=== PATIENT | male | born 1945 | race Caucasian/White ===

== ENCOUNTER → 2018-08-26 | Outpatient (CLI) | payer OTHER ==
[~2018-08-26] VITALS: Ht 182.9 cm; Wt 124.2 kg
[~2018-08-26] MED LIST: ASPIR 8181 M1 PO; BYSTOLIC2.5 MG PO; CELEBREX 200 M200 M1 PO; CHLORTHALIDONE25 MG PO; CRESTOR5 MG PO; LISINOPRIL10 MG PO; NORVASC2.5 MG PO; PERCOCET 10-321 EACH PO
--- NOTE | ~2018-08-26 | HPC ---
[facility] [address] [place] [address] PAIN MANAGEMENT CONSULTATION Name: JEANNINE ABDUL Room #: REG FISH Carolyn.#: [id number] Admission: 08/26/18 ������������������ Attend Phys: Mick Rodriguez MD Discharge: ������������������ Date of : 43 Report #: [id number] THIS REPORT FOR: //name// CC: [facility] physician/PCP Mick Rodriguez DATE OF SERVICE: 08/26/2018 Followup visit for sacroiliac joint pain on the left. The patient returns to pain clinic today after seeing Xiomara Clay. We provided radiofrequency ablation of his sacroiliac joint nerves at a previous appointment in 2018 at [facility]. He was favorable with about 2-3 months response. We would like to see longer 6 months is often considered the standard for a favorable response reaching up into 18 months or even longer. We reviewed further options. I think based upon his response, we are treating the pain generator. The additional treatment options would possibly be an iFuse, the fusion device that will stabilize the sacroiliac joint. Dr. Abernathy has apparently discussed this possibility with him for the future. For now, he would like to continue with the radiofrequency treatments I think it is reasonable to repeat it, it has been now about 6 months I believe or longer since his original treatment. Today, he describes his pain as a 4/10. It is localized in the left sacroiliac joint. He also has some arthritis in his knees with effusion and just recently underwent arthrocentesis and injection of triamcinolone into each knee. His reports that he was given 80 mg of triamcinolone in each knee for a total of 160 mg. The procedure went fine, he is a little bit better, but he is now just over about of hiccups that occurred shortly after his injections and he blamed on the cortisone. I am unaware of that side effect. Perhaps a higher dose of triamcinolone was a result. The pain does not seem to affect his ambulation. He has not fallen, does not appear to be a fall risk. He is on no blood thinners. His primary care physician treats him for hypertension. He is on lisinopril. All other medications were reviewed and reconciled from electronic medical record including an additional amlodipine. For pain, he takes Celebrex and oxycodone 10/[address] Abernathy. He is at low risk for addiction. He is on an opioid agreement with Dr. Lobo team. SOCIAL HISTORY: Denies use of tobacco, but drinks alcohol socially once or twice a week. PHYSICAL EXAMINATION: GENERAL: A pleasant, outgoing gentleman. VITAL SIGNS: He is 6 feet tall, 273 pounds for a BMI of 37.1. Weight loss [address] [address] PAIN MANAGEMENT CONSULTATION Name: JEANNINE ABDUL Room #: REG FISH Lujan#: [id number] Admission: 08/26/18 ������������������ Attend Phys: Mick Rodriguez MD Discharge: ������������������ Date of : 43 Report #: [id number] strategies have been discussed in the past. His blood pressure 124/59, heart rate 65, respirations 20. He easily moves from sitting to standing position, ambulates without difficulty. Localized tenderness is identified over the sacroiliac joint. There is modest Nemo test, reproducing some additional pain in the sacroiliac joint. IMPRESSION: Post-laminectomy with fusion. Fusion extends through the sacrum and has created sacroiliac joint dysfunction and sacroiliac joint pain with a positive response to diagnostic treatment injections. PLAN: We will schedule him for radiofrequency ablation. A followup scheduled in September when he returns to [place]. ��������������������������������������������� ���������������������������������������� By: ��������������������������������������������� [id number] Mick Rodriguez MD /nt
[2018-08-26 13:17] VITALS: BP 124/59
== END ==
LOC: PAIN 07:00
DX: M43.26 Fusion of spine, lumbar region (principal); M53.3 Sacrococcygeal disorders, not elsewhere classified; M96.1 Postlaminectomy syndrome, not elsewhere classified

== ENCOUNTER → 2018-09-27 | Outpatient (CLI) | payer OTHER ==
[~2018-09-27] VITALS: Ht 182.9 cm; Wt 126.7 kg
[2018-09-27 14:10] VITALS: BP 138/75
--- NOTE | 2018-09-27 14:35 | NUR ---
Pain Clinic Assessment: 1. History of Osteoarthritis: KNEES History of Rheumatoid Arthritis: Not Applicable 2. Height: 6 ft. 0 in. 182.9 cm. Weight: 279.4 lb. oz. 126.735 kg. Patient's BMI: 37.9 3. Vital Signs: BP: 138/75 Pulse: 73 Resp: 16 Temp: 02 Sat: 95 ECG Mon: 4. Pain Intensity: 4 BACK, KNEES-8 5. Fall Risk: Dizziness: N Needs help standing or walking: N Fallen in the last 3 months: N Fall risk comments: 6. Patient on Blood Thinner: None 7. History of Hypertension: Y 8. Opioid Therapy greater than 6 weeks: Opiate Contract Signed: 9. Risk Assessment Tool Provided: 0-LOW RISK 10. Functional Assessment Tool: 11. Recreational Drug Use: Unknown Drug Type: Tobacco Use: Unknown if Ever Smoked Tobacco Type: Amount or Packs/day: How Many Years: Alcohol Use: Yes Frequency: Quant:
--- NOTE | 2018-10-18 18:12 | HPC ---
[facility] [address] [place] [address] PAIN MANAGEMENT CONSULTATION Name: JEANNINE ABDUL [id number] Admission: 09/27/18 ������������������ Attend Phys: Mick Rodriguez MD Discharge: ������������������ Date of : 43 Report #: [id number] THIS REPORT FOR: //name// CC: [facility] physician/PCP Ramon Rodriguez DATE OF SERVICE: 09/27/2018 Followup visit for severe left sacroiliac joint pain, bilateral osteoarthritis of the knees and chronic intractable pain. The patient returns to the pain clinic today for radiofrequency ablation of the L5 dorsal ramus, the S1, S2 and S3 branches on the left. He had this procedure performed successfully at [facility]. Unfortunately, the duration of response was not as long as we had hoped for. We have decided today that we will repeat the injection and again we are looking for sustained and prolonged relief. The potential benefits and risks of the procedure were discussed with the patient at some length today. He understands the procedure well and is anxious to proceed. PHYSICAL EXAMINATION: This is a very pleasant, outgoing 73-year-old gentleman. Blood pressure 138/75 and heart rate 73. He has pain across the lumbosacral segment primarily in the left sacroiliac joint. There is positive Nemo reproducing pain into the sacroiliac joint. There is a large scar extending throughout the lumbosacral region from his previous L4 through S1 fusion. IMPRESSION: Sacroiliitis with instability, status post laminectomy with fusion. Sacroiliac dysfunction. PROCEDURE: Radiofrequency ablation, L5, S1, S2, S3. DESCRIPTION OF PROCEDURE: He was taken to the fluoroscopic suite where he was placed prone. Skin was prepped with ChloraPrep and draped in the standard fashion. The skin was anesthetized inferior to the sacrum on the left and 15 cm, 10 mm active tip radiofrequency needles were advanced in parallel just lateral to the posterior foramen of S3, S2 and S1. AP and lateral views were used to confirm location. Lily were gently advanced into position, slightly advancing the medial needle from the tip of the lateral needle to provide a stair stepping effect for the ablation. Testing was performed to provide confirmation of some sensory response and we tested for motor; however, for the S1, S2 and S3 branches, there was no motor branch to be concerned about using the posterior approach along the posterior table of sacrum. Nonetheless, all responses confirmed reasonable needle location and beginning first at S3, I injected 1 mL of 1% lidocaine through each needle and after waiting 30 seconds followed with a 90-second 80 degree lesion performed simultaneously through each needle. The probe was then removed and the [place] [address] PAIN MANAGEMENT CONSULTATION Name: JEANNINE ABDUL Room #: REG FISH Lujan#: [id number] Admission: 09/27/18 ������������������ Attend Phys: Mick Rodriguez MD Discharge: ������������������ Date of : 43 Report #: [id number] position just lateral to the foramen, posterior neural foramen of S2 the medial needle once more slightly more cephalad than the lateral. Lidocaine was injected 1%, 1 mL through each needle once again and after appropriate testing I performed lesioning once again at 80 degrees for 90 seconds. The needles were finally advanced further cephalad to the S1 foramen where we repeated the procedure in the same fashion. At the conclusion of the three sacral nerve root radiofrequencies, I injected as I withdrew the needles slowly, a total of 2 mL of 0.5% bupivacaine mixed with 20 mg of triamcinolone through each needle. The skin was then anesthetized inferior and medial to the sacral ala on the left. The same two needles were then advanced into position at the sacral ala where sensory and motor testing was performed carefully at this level. There was no motor response. After injecting 1 mL of 1% lidocaine through each needle and after a 30-second wait, we then performed the final radiofrequency lesion 80 degrees for 90 seconds through each of the needles lying parallel to each other at the sacral ala. He tolerated the procedure well. There was some discomfort overlying the area of the sacrum following the procedure, which was treated with ice He scored his pain at 3 at discharge. There was no evidence of weakness in the lower extremities. No medications were ordered. We will follow up by phone. Other treatments were discussed in the recovery room. He has some interest in intrathecal therapies if his pain continues given his multiple pain generators. ��������������������������������������������� <ELECTRONICALLY SIGNED> ���������������������������������������� By: Mick Rodriguez MD ��������������������������������������������� 10/18/18 1812 1825 0625 Mick Rodriguez MD /nt
== END | disposition home or self-care (01) ==
LOC: PAIN 06:47
DX: M53.3 Sacrococcygeal disorders, not elsewhere classified (principal); G89.29 Other chronic pain; M17.0 Bilateral primary osteoarthritis of knee; Z98.890 Other specified postprocedural states; Z79.899 Other long term (current) drug therapy; Z79.891 Long term (current) use of opiate analgesic; Z79.82 Long term (current) use of aspirin

== ENCOUNTER → 2019-02-28 | Outpatient (CLI) | payer OTHER ==
[~2019-02-28] VITALS: Ht 182.9 cm; Wt 117.2 kg
--- NOTE | ~2019-02-28 | HPC ---
[facility] [place] [address] PAIN MANAGEMENT CONSULTATION Name: JEANNINE ABDUL Room #: REG [facility] M..#: [id number] Admission: 02/28/19 Attend Phys: Mick Rodriguez MD Discharge: Date of : 43 Report #: [id number] THIS REPORT FOR: //name// CC: [facility] physician/PCP Ramon Rodriguez DATE OF SERVICE: 02/28/2019 Followup visit for severe left sacroiliac joint pain, status post lumbar fusion. The patient returns to pain clinic today complaining bitterly of pain in the left sacroiliac joint. He reports that the sacroiliac radiofrequency ablation procedure that was performed on 09/27/2018 was very helpful for many months. He would like to repeat the procedure. His response is certainly diagnostic. He takes some pain medication provided by local physicians. I do not prescribe for him. PHYSICAL EXAMINATION: This is a pleasant gentleman, alert and oriented. He is somewhat overweight with a BMI of 35. He has diffuse osteoarthritis involving hips and knees. His blood pressure 150/76, heart rate 70, respirations 16. O2 sat is 97. Pain intensity 6. He is independent in his movements from sitting to standing position, although they are antalgic and he complains of pain. He has not fallen in the last 3 months. There is no hypertension. He takes medication for it. He is on an opioid agreement and is considered at low risk for addiction with an opioid risk score of 0. Functional assessment score 25/70, suggests that he does not let pain interfere. He denies use of tobacco, but enjoys alcohol in social settings. IMPRESSION: He has chronic sacroiliitis with instability, status post laminectomy and fusion. Sacroiliac dysfunction. He has responded very favorably to radiofrequency ablation of the L5 dorsal ramus, S1, S2 and S3 posterior rami. PROCEDURE: Radiofrequency ablation. DESCRIPTION OF PROCEDURE: He was taken to fluoroscopic suite, placed prone, skin prepped with ChloraPrep. Skin was anesthetized inferior to the sacrum to the left. Two 15 cm 20-gauge curved RFK needles were used for the procedure. A 10 mm active tip. We advanced the needles first lateral to the S3 foramen. AP and lateral views confirmed good location. We tested without motor response as would be expected with the needles posterior to the table of sacrum. Sensory testing did reveal some tingling sensations in the area of pain. A 1 mL of lidocaine was injected through each needle and the tandem parallel needles were [facility] [address] [place] [address] PAIN MANAGEMENT CONSULTATION Name: JEANNINE ABDUL Room #: REG FISH Tai#: [id number] Admission: 02/28/19 Attend Phys: Mick Rodriguez MD Discharge: Date of : 43 Report #: [id number] then used to perform a radiofrequency lesioning procedure for 90 seconds at 80 degrees centigrade. I then advanced the needle slowly approximately a cm on each one to lie lateral to the S2 posterior foramen. Once again, testing performed with appropriate responses. Lidocaine infused into the needle, 1 mL through each one and then the probes were replaced and the second radiofrequency lesioning procedure was performed as above. The procedure was repeated once again lateral to the S1 posterior foramen in a similar fashion. [place] were then withdrawn. The skin was anesthetized at a different angle I advanced needle into the area of the sacral ala. Testing was performed at this location in earnest to ensure that there was no needle placement near the L5 nerve root, which exits just below the sacral ala. There was no motor response and sensory responses were limited due to the use of lidocaine. We then performed our final lesioning at that level, including radiofrequency lesioning on the left of the L5 dorsal ramus, S1, S2 and S3 posterior medial branch nerve blocks. Before I removed each needle, I injected as I withdrew triamcinolone 20 mg along with 3 mL of 0.5% bupivacaine to help with post-procedural neuritis. He tolerated the procedure well and was observed in recovery room for about 40 minutes and was discharged with a pain score reduction of about 30%. Follow up as needed. By: [id number] Mick Rodriguez MD /jarred
[2019-02-28 13:55] VITALS: BP 150/76
--- NOTE | 2019-02-28 14:07 | NUR ---
Pain Clinic Assessment: 1. History of Osteoarthritis: KNEES History of Rheumatoid Arthritis: DENIES 2. Height: 6 ft. 0 in. 182.9 cm. Weight: 258.4 lb. oz. 117.210 kg. Patient's BMI: 35.0 3. Vital Signs: BP: 150/76 Pulse: 70 Resp: 16 Temp: 02 Sat: 97 ECG Mon: 4. Pain Intensity: 6 5. Fall Risk: Dizziness: N Needs help standing or walking: N Fallen in the last 3 months: N Fall risk comments: 6. Patient on Blood Thinner: None 7. History of Hypertension: Y 8. Opioid Therapy greater than 6 weeks: Y Opiate Contract Signed: 9. Risk Assessment Tool Provided: 0-LOW RISK 10. Functional Assessment Tool: 11. Recreational Drug Use: Never Drug Type: Tobacco Use: Former Smoker Tobacco Type: Amount or Packs/day: How Many Years: Alcohol Use: Yes Frequency: Special Occasions Quant:
== END | disposition home or self-care (01) ==
LOC: PAIN 07:23
DX: M53.3 Sacrococcygeal disorders, not elsewhere classified (principal); M46.1 Sacroiliitis, not elsewhere classified; G89.29 Other chronic pain; Z98.890 Other specified postprocedural states; Z87.891 Personal history of nicotine dependence; Z79.82 Long term (current) use of aspirin; Z79.899 Other long term (current) drug therapy

== ENCOUNTER → 2019-09-15 | Outpatient (CLI) | payer OTHER ==
[~2019-09-15] VITALS: Ht 182.9 cm; Wt 127.6 kg
--- NOTE | ~2019-09-15 | HPC ---
[facility] [place] [address] PAIN MANAGEMENT CONSULTATION Name: JEANNINE ABDUL Room #: REG FISH MMariana.#: [id number] Admission: 09/15/19 Attend Phys: Mick Rodriguez MD Discharge: Date of : 43 Report #: [id number] THIS REPORT FOR: cc: [facility] - No family physician/PCP FAM - No family physician/PCP Mick Rodriguez MD ~ CC: [facility] physician/PCP BARBY Rodriguez DATE OF SERVICE: 09/15/2019 Followup visit for left sacroiliac joint pain, status post lumbar fusion. The patient returns to pain clinic today after seeing Dr. Barby Abernathy. He also presents with procedure reports from treatments he received while he was in [place]. He was seen at the [facility] there and Dr. Mick Sanford performed 2 injections. The first on 07/27/2019 was the injection of 2 mL of 0.5% Marcaine around his left S1 screw complex. This was done solely for diagnostic purposes. By report, several hours of pain relief occurred. He then returned 1 week later, received a second injection this time, using the exact same volume of Marcaine, but also included 80 mg of Depo-Medrol. The injections outlined the posterior screw complex. Unfortunately, the Depo-Medrol addition did not provide any lasting relief and pain returned very quickly. In fact, he reports that he did not receive the same benefit from the 2 mL of 0.5% ropivacaine. In the past, I have treated him for a sacroiliac origin. This makes more sense mechanically I believe. There is hypermobility of the sacroiliac joint when the lumbosacral fusion extends all the way through the sacrum. This puts additional stress on the sacroiliac joint and his pain is locally tender there. His response to the sacroiliac radiofrequency ablation procedures which has been favorable in 2 out of 3 occasions also suggests a sacroiliac origin. PQRS review is positive for osteoarthritis. He has had bilateral knee replacements. He has spondylitic changes above and below his fusion. His BMI is 38.2 and he is morbidly obese. We discussed weight as a pain generator. Blood pressure is 149/71, heart rate 61, respirations 20, and O2 sat is 96. Pain intensity 4/10. He has not fallen, nor does need his help standing or walking. He is on no blood thinners. He has been treated for hypertension with close observation. I reviewed all of his medications including his antihypertensive medications. He is on an opioid agreement. Medicines were provided by Dr. Abernathy. Last prescription was on 09/07/2019. I do not prescribe medications for him. His [address] [address] PAIN MANAGEMENT CONSULTATION Name: JEANNINE ABDUL Room #: REG FISH Lujan#: [id number] Admission: 09/15/19 Attend Phys: Mick Rodriguez MD Discharge: Date of : 43 Report #: [id number] risk assessment tool score is 0, however, and I have reviewed that with him. Despite his pain, he remains fairly active. His functional assessment score is 25/70. He denies use of tobacco, drinks alcohol socially. PHYSICAL EXAMINATION: VITAL SIGNS: As noted above. GENERAL: He moves independently, ambulates with mild antalgic features to his gait. He has minimal discomfort or pain with flexion, extension, rotation or [id number] tilt. Palpation exam reveals localized tenderness clearly along the left sacroiliac joint. There is perhaps some tenderness also at the lumbosacral segment. Pain does not radiate into the leg and does not appear to be radicular. He denies weakness, numbness or tingling. IMPRESSION: Chronic sacroiliac joint pain with sacroiliitis due to instability, status post extensive lumbar laminectomy and fusion. He has responded favorably in the past to radiofrequency ablation. We have spent some time since we have tried a simple triamcinolone injection of the sacroiliac joint. This can be performed quickly. We are both hopeful that we can obtain pain relief from a cortisone injection that may provide similar duration to his radiofrequency. He has been scheduled back for injection in 1-2 weeks as we continue to monitor the COVID-19 virus. Risks of injections were discussed. By: 1155 [id number] Mick Rodriguez MD /nt
[2019-09-15 10:15] VITALS: BP 149/71
--- NOTE | 2019-09-15 10:24 | NUR ---
Pain Clinic Assessment: 1. History of Osteoarthritis: KNEES History of Rheumatoid Arthritis: DENIES 2. Height: 6 ft. 0 in. 182.9 cm. Weight: 281.4 lb. oz. 127.643 kg. Patient's BMI: 38.2 3. Vital Signs: BP: 149/71 Pulse: 61 Resp: 20 Temp: 02 Sat: 96 ECG Mon: 4. Pain Intensity: 4 5. Fall Risk: Dizziness: N Needs help standing or walking: N Fallen in the last 3 months: N Fall risk comments: 6. Patient on Blood Thinner: None 7. History of Hypertension: Y 8. Opioid Therapy greater than 6 weeks: Y Opiate Contract Signed: 9. Risk Assessment Tool Provided: 0-LOW RISK 10. Functional Assessment Tool: 11. Recreational Drug Use: Never Drug Type: Tobacco Use: Former Smoker Tobacco Type: Amount or Packs/day: How Many Years: Alcohol Use: Yes Frequency: Quant:
== END ==
LOC: PAIN 07:16
DX: M53.3 Sacrococcygeal disorders, not elsewhere classified (principal); M96.1 Postlaminectomy syndrome, not elsewhere classified; Z96.1 Presence of intraocular lens; Z79.899 Other long term (current) drug therapy

== ENCOUNTER → 2019-09-19 | Outpatient (CLI) | payer OTHER ==
[~2019-09-19] VITALS: Ht 182.9 cm; Wt 127.0 kg
--- NOTE | ~2019-09-19 | HPC ---
[facility] [place] [address] PAIN MANAGEMENT CONSULTATION Name: JEANNINE ABDUL Room #: REG FISH Carolyn.#: [id number] Admission: 09/19/19 Attend Phys: Mick Rodriguez MD Discharge: Date of : 43 Report #: [id number] THIS REPORT FOR: cc: [facility] - No family physician/PCP FAM - No family physician/PCP Mick Rodriguez MD ~ CC: [facility] physician/PCP aRmon Rodriguez DATE OF SERVICE: 09/19/2019 Followup visit for left sacroiliac joint injection under fluoroscopic guidance. The patient was seen just 5 days ago. He is here today for his injection. We were unable to perform the injection last . Procedure was reviewed including detail. Discussed risks. Plan 40 mg of triamcinolone. Questions were answered and informed consent signed. IMPRESSION: Left sacroiliac joint pain, sacroiliitis, status post lumbar fusion. PROCEDURE: Sacroiliac joint injection under fluoroscopic guidance. After informed consent, he was taken to the fluoroscopic suite, placed prone, skin prepped with ChloraPrep. Skin anesthetized over the left sacroiliac joint. Skin was anesthetized and a 22-gauge needle advanced into the posterior inferior capsule. After negative aspiration, I gently injected 1/4-1/8th of 1 mL of Omnipaque. An excellent arthrogram was obtained. I then injected 2 mL of 0.5% bupivacaine mixed with 40 mg of triamcinolone. He tolerated the injection well. There were no complications. He was observed for a short time and discharged. Follow up as needed. By: 1330 1434 Mick Rodriguez MD /nt
[2019-09-19 09:38] VITALS: BP 139/71
--- NOTE | 2019-09-19 09:53 | NUR ---
Pain Clinic Assessment: 1. History of Osteoarthritis: spine History of Rheumatoid Arthritis: no 2. Height: 6 ft. 0 in. 182.9 cm. Weight: 280.0 lb. oz. 127.008 kg. Patient's BMI: 38.0 3. Vital Signs: BP: 139/71 Pulse: 66 Resp: 20 Temp: 02 Sat: 96 ECG Mon: 4. Pain Intensity: 5-6 5. Fall Risk: Dizziness: N Needs help standing or walking: N Fallen in the last 3 months: N Fall risk comments: 6. Patient on Blood Thinner: None 7. History of Hypertension: Y 8. Opioid Therapy greater than 6 weeks: Y Opiate Contract Signed: 9. Risk Assessment Tool Provided: 0-LOW RISK 10. Functional Assessment Tool: 11. Recreational Drug Use: Never Drug Type: Tobacco Use: Former Smoker Tobacco Type: Amount or Packs/day: How Many Years: Alcohol Use: Yes Frequency: Quant:
== END | disposition home or self-care (01) ==
LOC: PAIN 06:53
DX: M53.3 Sacrococcygeal disorders, not elsewhere classified (principal); G89.29 Other chronic pain; Z98.890 Other specified postprocedural states; Z79.899 Other long term (current) drug therapy; Z87.891 Personal history of nicotine dependence
CPT/HCPCS: G0260

== ENCOUNTER → 2019-12-15 | Outpatient (CLI) | payer OTHER ==
[~2019-12-15] VITALS: Ht 182.9 cm; Wt 128.9 kg
--- NOTE | ~2019-12-15 | HPC ---
[facility] [address] [address] PAIN MANAGEMENT CONSULTATION Name: JEANNINE ABDUL Room #: REG FISH Leon.#: [id number] Admission: 12/15/19 Attend Phys: Mick Rodriguez MD Discharge: Date of : 43 Report #: [id number] THIS REPORT FOR: cc: [facility] - No family physician/PCP [facility] - No family physician/PCP Mick Rodriguez MD ~ CC: [facility] physician/PCP Ramon Rodriguez DATE OF SERVICE: 12/15/2019 Followup visit for left sacroiliac joint pain. The patient returns to pain clinic today and has pain in his left sacroiliac joint. He has sacroiliitis. It is so common after patients who have had an extensive fusion extending down into the sacrum. We have a number of patients who complain of pain in that area and respond to diagnostic and therapeutic injections. We tried to do radiofrequency, but it is difficult to isolate those nerves. He might do better if we could find some place to do cooled radiofrequency and we discussed that. He has responded to sacroiliac injections with numbing medicine bupivacaine as well as triamcinolone. He is here today for a repeat injection. His last injection was about 3-1/2 months ago. PQRS remains unchanged. His BMI is 35.8. He has a history of osteoarthritis and spondylosis. His vital signs: Blood pressure 131/84, heart rate 64, respirations 20, O2 sat 97, pain intensity 6 with pain medicine. He has not fallen and he is not at risk. He continues to fish and is active. He is on no blood thinners, but is treated for hypertension. Opioid therapy is provided by Dr. Abernathy under terms of agreement from his office. He is at low risk according to the opioid risk tool. His functional assessment score is 24 showing stoicism. Denies tobacco, but drinks alcohol every so often in the summer when it is hot, drinking beer. IMPRESSION: Lumbar spondylosis with sacroiliac joint pain and sacroiliitis related to extensive lumbosacral fusion. RECOMMENDATION AND PLAN: Repeat sacroiliac injection under fluoroscopic guidance. After informed consent, he was taken to the fluoroscopic suite, placed prone, skin prepped with ChloraPrep. Skin anesthetized over the left SI joint. A 22-gauge spinal needle was advanced in the sacroiliac joint. A 0.25 mL of Omnipaque was injected on 3 occasions until I obtain an arthrogram. It was then followed by 40 mg of triamcinolone and 0.5 mL of 0.5% bupivacaine. He tolerated the procedure well, was observed for 45 minutes and discharged. [address] [address] PAIN MANAGEMENT CONSULTATION Name: JEANNINE ABDUL Room #: REG FISH Lujan#: [id number] Admission: 12/15/19 Attend Phys: Mick Rodriguez MD Discharge: Date of : 43 Report #: [id number] Followup visit planned as needed. Hopefully, this will provide him some measured relief over the course of the next several months and we will repeat them. By: [id number] Mick Rodriguez MD /nt
[2019-12-15 10:02] VITALS: BP 131/84
--- NOTE | 2019-12-15 10:13 | NUR ---
Pain Clinic Assessment: 1. History of Osteoarthritis: spine History of Rheumatoid Arthritis: no 2. Height: 6 ft. 0 in. 182.9 cm. Weight: 284.2 lb. oz. 128.913 kg. Patient's BMI: 38.5 3. Vital Signs: BP: 131/84 Pulse: 64 Resp: 20 Temp: 02 Sat: 97 ECG Mon: 4. Pain Intensity: 5-6 WITH PAIN MED 5. Fall Risk: Dizziness: N Needs help standing or walking: N Fallen in the last 3 months: N Fall risk comments: 6. Patient on Blood Thinner: None 7. History of Hypertension: Y 8. Opioid Therapy greater than 6 weeks: Y Opiate Contract Signed: 9. Risk Assessment Tool Provided: 0-LOW RISK 10. Functional Assessment Tool: 11. Recreational Drug Use: Never Drug Type: Tobacco Use: Former Smoker Tobacco Type: Amount or Packs/day: How Many Years: Alcohol Use: Yes Frequency: Quant: COUPLE BEERS A WEEK IN SUMMER ONLY
== END | disposition home or self-care (01) ==
LOC: PAIN 06:49
PROVIDERS: ATTEND Anesthesiology Pain Medicine
DX: M53.3 Sacrococcygeal disorders, not elsewhere classified (principal); G89.29 Other chronic pain; M47.896 Other spondylosis, lumbar region; I10 Essential (primary) hypertension; Z98.890 Other specified postprocedural states; Z79.899 Other long term (current) drug therapy; Z79.01 Long term (current) use of anticoagulants

== ENCOUNTER → 2020-03-08 | Outpatient (CLI) | payer OTHER ==
[~2020-03-08] VITALS: Ht 182.9 cm; Wt 129.3 kg
--- NOTE | ~2020-03-08 | HPC ---
[facility] [place] [address] PAIN MANAGEMENT CONSULTATION Name: JEANNINE ABDUL Room #: REG FISH [place].#: [id number] Admission: 03/08/20 Attend Phys: Mick Rodriguez MD Discharge: Date of : 43 Report #: [id number] CC: BARBY Rodriguez DATE OF SERVICE: 03/08/2020 Followup visit for left sacroiliac joint pain. The patient returns to pain clinic today for sacroiliac injection. I performed these injections periodically for him with good result. He is not a surgical candidate. We have discussed other options including medication management. I have agreed to perform the injections for him. Dr. Abernathy has been providing him with medication under an agreement through the clinic. We will continue that arrangement. I reviewed his prescription drug monitoring program information and he is on a fairly straightforward schedule receiving oxycodone 10/325, 120 tablets per month. He would like to avoid increasing his pain medication. Generally after an injection he is able to extend those opioid medications into the 2-3 months range suggesting a significant improvement. PQRS review is positive for spondylosis and osteoarthritis of the sacroiliac joint. His BMI is 38.6. Blood pressure 146/70, heart rate 61, respirations 20, O2 sat 97. Pain intensity is 5-6 with pain medication, without it can be excruciating. He has had no falls, is on no blood thinners. He does receive medication, is under treatment for hypertension. His opioid agreement is through Dr. Abernathy's office and his risk assessment tool that we perform in our clinic shows that he is extremely low risk for addiction with a score of 0. He does drink alcohol socially. We discussed the interaction between opioids and alcohol and he is careful to not combine them at the same. PHYSICAL EXAMINATION: Positive for localized discomfort over the sacroiliac joint with a positive ADI reproducing pain directly over the joint itself. IMPRESSION: Sacroiliitis with sacroiliac joint dysfunction following fusion of lumbosacral spine. PROCEDURE: Sacroiliac joint under fluoroscopic guidance. DESCRIPTION OF PROCEDURE: After informed consent, he was taken to the fluoroscopic suite, he was placed prone, skin prepped with ChloraPrep. Skin anesthetized over the left SI joint. Using careful fluoroscopic guidance, I advanced a 22-gauge spinal needle into the joint and an excellent arthrogram was obtained with 0.25 mL of Omnipaque. It was followed then by 2 mL of 0.5% bupivacaine mixed with 40 mg of triamcinolone. He tolerated the procedure well. There were no complications. Pain relief was modest initially, but will hopefully improve over time. Followup visit scheduled in 3 months. By: [id number] Mick Rodriguez MD /nt
[2020-03-08 09:43] VITALS: BP 146/70
--- NOTE | 2020-03-08 09:44 | NUR ---
Pain Clinic Assessment: 1. History of Osteoarthritis: spine History of Rheumatoid Arthritis: no 2. Height: 6 ft. 0 in. 182.9 cm. Weight: 285.0 lb. oz. 129.276 kg. Patient's BMI: 38.6 3. Vital Signs: BP: 146/70 Pulse: 61 Resp: 20 Temp: 02 Sat: 97 ECG Mon: 4. Pain Intensity: 5-6 WITH PAIN MED 5. Fall Risk: Dizziness: N Needs help standing or walking: N Fallen in the last 3 months: N Fall risk comments: 6. Patient on Blood Thinner: None 7. History of Hypertension: Y 8. Opioid Therapy greater than 6 weeks: Y Opiate Contract Signed: 9. Risk Assessment Tool Provided: 0-LOW RISK 10. Functional Assessment Tool: 11. Recreational Drug Use: Never Drug Type: Tobacco Use: Former Smoker Tobacco Type: Amount or Packs/day: How Many Years: Alcohol Use: Yes Frequency: Quant:
== END | disposition home or self-care (01) ==
LOC: PAIN 06:49
PROVIDERS: ATTEND Anesthesiology Pain Medicine
DX: M53.3 Sacrococcygeal disorders, not elsewhere classified (principal); G89.29 Other chronic pain; Z98.890 Other specified postprocedural states; Z87.891 Personal history of nicotine dependence; Z79.899 Other long term (current) drug therapy

== ENCOUNTER → 2020-10-04 | Outpatient (CLI) | payer OTHER ==
[~2020-10-04] VITALS: Ht 182.9 cm; Wt 127.2 kg
[2020-10-04 10:31] VITALS: BP 133/66
--- NOTE | 2020-10-04 10:41 | NUR ---
Pain Clinic Assessment: 1. History of Osteoarthritis: spine History of Rheumatoid Arthritis: no 2. Height: 6 ft. 0 in. 182.9 cm. Weight: 280.4 lb. oz. 127.189 kg. Patient's BMI: 38.0 3. Vital Signs: BP: 133/66 Pulse: 70 Resp: 16 Temp: 02 Sat: 96 ECG Mon: 4. Pain Intensity: 6 5. Fall Risk: Dizziness: N Needs help standing or walking: N Fallen in the last 3 months: N Fall risk comments: 6. Patient on Blood Thinner: None 7. History of Hypertension: Y 8. Opioid Therapy greater than 6 weeks: Y Opiate Contract Signed: 9. Risk Assessment Tool Provided: 0-LOW RISK 10. Functional Assessment Tool: 11. Recreational Drug Use: Never Drug Type: Tobacco Use: Former Smoker Tobacco Type: Amount or Packs/day: How Many Years: Alcohol Use: Yes Frequency: Special Occasions Quant: 1
== END | disposition home or self-care (01) ==
LOC: PAIN 07:29
PROVIDERS: ATTEND Anesthesiology Pain Medicine
DX: M53.3 Sacrococcygeal disorders, not elsewhere classified (principal); M46.1 Sacroiliitis, not elsewhere classified; G89.29 Other chronic pain; Z98.890 Other specified postprocedural states; Z79.899 Other long term (current) drug therapy; Z87.891 Personal history of nicotine dependence; Z79.82 Long term (current) use of aspirin

== ENCOUNTER → 2021-01-03 | Outpatient (CLI) | payer OTHER ==
[~2021-01-03] VITALS: Ht 182.9 cm; Wt 126.9 kg
[2021-01-03 11:04] VITALS: BP 139/64
--- NOTE | 2021-01-03 11:18 | NUR ---
Pain Clinic Assessment: 1. History of Osteoarthritis: spine History of Rheumatoid Arthritis: no 2. Height: 6 ft. 0 in. 182.9 cm. Weight: 279.8 lb. oz. 126.917 kg. Patient's BMI: 37.9 3. Vital Signs: BP: 139/64 Pulse: 57 Resp: 18 Temp: 02 Sat: 98 ECG Mon: 4. Pain Intensity: 4-8 5. Fall Risk: Dizziness: N Needs help standing or walking: N Fallen in the last 3 months: N Fall risk comments: 6. Patient on Blood Thinner: None 7. History of Hypertension: Y 8. Opioid Therapy greater than 6 weeks: Y Opiate Contract Signed: 9. Risk Assessment Tool Provided: 0-LOW RISK 10. Functional Assessment Tool: 11. Recreational Drug Use: Never Drug Type: Tobacco Use: Former Smoker Tobacco Type: Amount or Packs/day: How Many Years: Alcohol Use: Yes Frequency: Quant:
== END | disposition home or self-care (01) ==
LOC: PAIN 10:17
PROVIDERS: ATTEND Anesthesiology Pain Medicine
DX: M53.3 Sacrococcygeal disorders, not elsewhere classified (principal); G89.29 Other chronic pain; Z98.890 Other specified postprocedural states; Z79.899 Other long term (current) drug therapy; Z87.891 Personal history of nicotine dependence; Z79.82 Long term (current) use of aspirin

== ENCOUNTER → 2021-04-01 | Outpatient (CLI) | payer OTHER ==
[~2021-04-01] VITALS: Ht 182.9 cm; Wt 126.3 kg
[2021-04-01 11:36] VITALS: BP 149/68
--- NOTE | 2021-04-01 11:47 | NUR ---
Pain Clinic Assessment: 1. History of Osteoarthritis: spine History of Rheumatoid Arthritis: no 2. Height: 6 ft. 0 in. 182.9 cm. Weight: 278.4 lb. oz. 126.282 kg. Patient's BMI: 37.7 3. Vital Signs: BP: 149/68 Pulse: 70 Resp: 20 Temp: 02 Sat: 97 ECG Mon: 4. Pain Intensity: 3 5. Fall Risk: Dizziness: N Needs help standing or walking: N Fallen in the last 3 months: N Fall risk comments: 6. Patient on Blood Thinner: None 7. History of Hypertension: Y 8. Opioid Therapy greater than 6 weeks: Y Opiate Contract Signed: 9. Risk Assessment Tool Provided: 0-LOW RISK 10. Functional Assessment Tool: 11. Recreational Drug Use: Never Drug Type: Tobacco Use: Former Smoker Tobacco Type: Amount or Packs/day: How Many Years: Alcohol Use: Yes Frequency: Quant:
== END | disposition home or self-care (01) ==
LOC: PAIN 10:33
PROVIDERS: ATTEND Anesthesiology Pain Medicine
DX: M53.3 Sacrococcygeal disorders, not elsewhere classified (principal); G89.29 Other chronic pain; I10 Essential (primary) hypertension; Z87.891 Personal history of nicotine dependence; Z98.890 Other specified postprocedural states; Z79.899 Other long term (current) drug therapy